=== PATIENT | male | born 1985 | race Caucasian/White ===

== ENCOUNTER 2022-08-19 09:24 | Emergency (ER) | payer BC ==
[2022-08-19 09:31] VITALS: BP 149/83; PULSE 96; RESP 20; TEMP 98
--- NOTE | 2022-08-19 09:53 | XR ---
EXAMINATION TYPE: XR ankle complete LT DATE OF EXAM: 08/19/2022 COMPARISON: NONE HISTORY: Pain TECHNIQUE: 3 views of the left ankle are submitted for evaluation. FINDINGS: Oblique fracture distal fibula with displacement of 3 mm at and proximal to the ankle morti se. No Additional fracture seen. Soft tissue swelling identified. IMPRESSION: 1. Distal fibular fracture.
[2022-08-19] MEDS ORDERED: ACET/COD 300 MG/30 MG STARTER PACK 6 TAB BTL PO STA (10:03)
--- NOTE | 2022-08-19 10:04 | ED ---
Lower Extremity Injury HPI - General Chief Complaint: Extremity Injury, Lower Stated Complaint: lt ankle injury Time Seen by Provider: 08/19/22 09:33 Source: patient, RN notes reviewed Mode of arrival: ambulatory Limitations: no limitations - History of Present Illness Initial Comments: 37-year-old male presents emergency Department with chief complaint of left ankle injury. Patient states he injured it on Thursday when he lost his balance was ankle went down some steps. Patient states is swollen, painful. Patient states only hurts when he puts weight on it. No paresthesias he does admit to bruising, swelling the lateral portion - Related Data Home Medications Medication Instructions Recorded Confirmed No Known Home Medications 08/19/22 08/19/22 Allergies Allergy/AdvReac Type Severity Reaction Status Date / Time No Known Allergies Allergy Verified 08/19/22 10:21 Review of Systems ROS Statement: Those systems with pertinent positive or pertinent negative responses have been documented in the HPI. ROS Other: All systems not noted in ROS Statement are negative. Past Medical History Past Medical History: Diabetes Mellitus, Hypertension History of Any Multi-Drug Resistant Organisms: None Reported Past Surgical History: No Surgical Hx Reported Past Psychological History: No Psychological Hx Reported Smoking Status: Current every day smoker Past Alcohol Use History: Occasional Past Drug Use History: None Reported General Exam Limitations: no limitations General appearance: alert, in no apparent distress Head exam: Present: atraumatic, normocephalic, normal inspection Eye exam: Present: normal appearance, PERRL, EOMI. Absent: scleral icterus, conjunctival injection, periorbital swelling Neck exam: Present: normal inspection, full ROM. Absent: tenderness, meningismus, lymphadenopathy Respiratory exam: Present: normal lung sounds bilaterally. Absent: respiratory distress, wheezes, rales, rhonchi, stridor Cardiovascular Exam: Present: regular rate, normal rhythm, normal heart sounds. Absent: systolic murmur, diastolic murmur, rubs, gallop, clicks Extremities exam: Present: other (Left lateral malleoli region ecchymosis, swelling times palpation no proximal tib-fib tenderness no foot tenderness neurovascular intact) Course Vital Signs 08/19/22 09:29 Temperature 98 F Pulse Rate 96 Respiratory 20 Rate Blood Pressure 149/83 O2 Sat by Pulse 99 Oximetry Procedures - Orthopedic Splinting/Casting Injury #1 Side: left Lower Extremity Injury Location: short leg, ankle Lower Extremity Immobilizer: posterior splint, synthetic pre-padded splint Other Orthopedic Equipment: crutches Additional Comments: This procedure was performed by me patient is neurovascular intact before and after procedure Medical Decision Making - Medical Decision Making Patient has left distal fibular fracture this was splinted is neurovascularly intact patient has crutches will be discharged follow-up with orthopedics. Patient to remain nonweightbearing Disposition Clinical Impression: Fracture of distal end of left fibula Disposition: HOME SELF-CARE Condition: Stable Instructions (If sedation given, give patient instructions): Leg Fracture (ED) Additional Instructions: Please return to the Emergency Department if symptoms worsen or any other concerns. Is patient prescribed a controlled substance at d/c from ED?: No Referrals: None,Stated [Primary Care Provider] - 1-2 days Julien Jiang MD [STAFF PHYSICIAN] - 1-2 days Time of Disposition: 10:03
== END 2022-08-19 10:09 | disposition home or self-care (01) ==
LOC: EC 09:24
DX: S82.832A Other fracture of upper and lower end of left fibula, initial encounter for closed fracture (principal); I10 Essential (primary) hypertension; E11.9 Type 2 diabetes mellitus without complications; F17.200 Nicotine dependence, unspecified, uncomplicated; W10.9XXA Fall (on) (from) unspecified stairs and steps, initial encounter
CPT/HCPCS: 29515; 99283

== ENCOUNTER → 2024-09-20 | Outpatient (CLI) | payer BC ==
--- NOTE | 2024-09-20 17:04 | XR ---
EXAMINATION TYPE: XR lumbosacral spine min 4V DATE OF EXAM: 09/20/2024 4:56 PM COMPARISON: None CLINICAL INDICATION: Male, 39 years old with history of [id number] LBP; [facility], pain TECHNIQUE: XR lumbosacral spine min 4V - Frontal, lateral , bilateral oblique and coned in L5-S1 late ral views of the spine. FINDINGS: No evidence of any acute osseous pathology. No evidence of loss of vertebral body height i s seen. There is normal alignment of the lumbar vertebral bodies. No significant degeneration changes throughout the spine. IMPRESSION: 1. No acute fracture. 2. Mild multilevel disc degeneration. [facility], , 09/20/2024 5:02 PM
== END | disposition home or self-care (01) ==
LOC: RADXRYALE 16:35
PROVIDERS: ATTEND Physician Assistant
DX: M51.369 Other intervertebral disc degeneration, lumbar region without mention of lumbar back pain or lower extremity pain (principal)
CPT/HCPCS: 72110

== ENCOUNTER → 2024-09-30 | Outpatient (CLI) | payer BC ==
--- NOTE | 2024-10-01 09:21 | MR ---
INDICATION: Patient age:Male; 39 years old; Reason for study: M54.41 LUMBAGO WITH SCIATICA, RIGHT SIDE; PHH. COMPARISONS: Lumbosacral spine radiograph 09/20/2024. TECHNIQUE: Multi planar, multi sequence imaging was performed utilizing: T1-weighted, T2-weighted, a nd turbo inversion recovery imaging of the lumbar spine. The patient was not given contrast. FINDINGS: The lumbar vertebral bodies do have preserved heights and alignment. Minimal disc desicca tion at L2-L3. No abnormal STIR signal. The conus medullaris and the distal spinal cord do appear un remarkable with regards to their signal intensity and morphology. L1-L2: No significant disc pathology is identified. The spinal canal and neural foramen are patent. L2-L3: No significant disc pathology is identified. The spinal canal and neural foramen are patent. L3-L4: No significant disc pathology is identified. The spinal canal and neural foramen are patent. L4-L5: No significant disc pathology is identified. The spinal canal and neural foramen are patent L5-S1: No significant disc pathology is identified. The spinal canal and neural foramen are patent Other significant findings: None. IMPRESSION: No definitive evidence for disc herniation or significant spinal canal stenosis. No significant degen erative disc disease identified. [facility], , 10/01/2024 9:19 AM
== END | disposition home or self-care (01) ==
LOC: RADMRIMAIN 20:15
PROVIDERS: ATTEND Family Medicine
DX: M54.16 Radiculopathy, lumbar region (principal)
CPT/HCPCS: 72148